=== PATIENT | female | born 1995 ===

== ENCOUNTER 2017-08-23 18:09 | Emergency (ER) | payer OTHER ==
[2017-08-23 18:22] VITALS: BP 119/75
[2017-08-23] MEDS ORDERED: Sulfamethox/Trimethoprim DS 800/160* TAB PO ONE (19:05)
--- NOTE | 2017-08-23 19:30 | UC ---
Complaint Female HPI - HPI Summary HPI Summary: THREE DAYS OF URINARY FREQUENCY, URGENCY, PAIN WITH URINATION. TODAY HAD SHARP ABDOMINAL PAIN, WHICH RESOLVED AFTER 3 MINUTES. CURRENTLY NO ABDOMINAL PAIN. TOOK 4 TABLETS OF AZO PRIOR TO ARRIVAL. - History Of Current Complaint Chief Complaint: UCAbdominalPain Stated Complaint: STOMACH PAIN Time Seen by Provider: 08/23/17 18:48 Hx Obtained From: Patient, Family/Tablet Coater Hx Last Menstrual Period: 07/2017 Onset/Duration: Gradual Onset, Lasting Days, Worse Since - TODAY Timing: Intermittent, Lasting Minutes Severity Initially: Mild Severity Currently: None Character: Cramping Aggravating Factor(s): Urination Associated Signs And Symptoms: Negative: Fever, Back Pain, Vaginal Bleeding/ Discharge, Vaginal Discharge, Nausea - Risk Factors Ectopic Risk Factor: Negative Ovarian Torsion Risk Factor: Negative - Allergies/Home Medications Allergies/Adverse Reactions: Allergies Allergy/AdvReac Type Severity Reaction Status Date / Time No Known Allergies Allergy Verified 08/23/17 18:22 PMH/Surg Hx/FS Hx/Imm Hx Previously Healthy: Yes - Surgical History Surgical History: None - Family History Known Family History: Positive: Hypertension - Social History Lives: With Family Alcohol Use: Weekly Substance Use Type: None Smoking Status (MU): Current Some Day Smoker Type: Cigarettes Amount Used/How Often: 3 CIG per wk - Immunization History Most Recent Influenza Vaccination: unknown Most Recent Tetanus Shot: <2 YEARS Vaccination Up to Date: Yes Review of Systems Constitutional: Negative Skin: Negative Eyes: Negative ENT: Negative Respiratory: Negative Cardiovascular: Negative Gastrointestinal: Abdominal Pain - RESOLVED Genitourinary: Dysuria, Frequency, Urgency Motor: Negative Neurovascular: Negative Musculoskeletal: Negative Neurological: Negative Psychological: Negative Is Patient Immunocompromised?: No All Other Systems Reviewed And Are Negative: Yes Physical Exam Triage Information Reviewed: Yes Appearance: Well-Appearing, No Pain Distress, Well-Nourished Vital Signs: Initial Vital Signs Temp 98.1 F 08/23/17 18:17 Pulse 52 08/23/17 18:17 Resp 14 08/23/17 18:17 BP 119/75 08/23/17 18:17 Pulse Ox 98 08/23/17 18:17 Vital Signs Reviewed: Yes Eye Exam: Normal ENT Exam: Normal ENT: Positive: Normal ENT inspection, Hearing grossly normal, Pharynx normal Dental Exam: Normal Neck exam: Normal Neck: Positive: Supple, Nontender, No Lymphadenopathy Respiratory Exam: Normal Respiratory: Positive: Chest non-tender, Lungs clear, Normal breath sounds, No respiratory distress, No accessory muscle use Cardiovascular Exam: Normal Cardiovascular: Positive: RRR, No Murmur, Pulses Normal, Brisk Capillary Refill Abdominal Exam: Normal Abdomen Description: Positive: Nontender - ABDOMEN NONTENDER ON CLINICAL EXAM, No Organomegaly, Soft. Negative: CVA Tenderness (R), CVA Tenderness (L) Musculoskeletal Exam: Normal Musculoskeletal: Positive: Strength Intact, ROM Intact Neurological Exam: Normal Psychological Exam: Normal Skin Exam: Normal Complaint Female Dx - Differential Dx/Diagnosis Differential Diagnosis/HQI/PQRI: Appendicitis, , Sexually Transmitted Disease, Urinary Tract Infection Provider Diagnoses: DYSURIA Discharge - Discharge Plan Condition: Stable Disposition: HOME Prescriptions: Sulfamethox/Trimethoprim DS* [Bactrim DS 800/160 TAB*] 1 tab PO BID #10 tab Patient Education Materials: Dysuria (ED) Referrals: [facility] [facility] [Outside] Additional Instructions: YOU HAVE BEEN TREATED FOR A UTI, SINCE YOU HAVE HAD UTI SYMPTOMS FOR SEVERAL DAYS. YOU ARE CURRENTLY NONTENDER IN YOUR ABDOMEN. HOWEVER, PLEASE SEEK IMMEDIATE EVALUATION AT EMERGENCY DEPARTMENT IF SYMPTOMS RETURN, WORSEN, OR CHANGE.
--- NOTE | 2017-08-26 15:00 | UC ---
Progress - Progress Note Progress Note: + E. Coli Pt on Bactrim await sensitivity [facility] 08/26/2017 1500
== END 2017-08-23 19:35 | disposition home or self-care (01) ==
LOC: UCEAST 18:09
DX: R30.0 Dysuria (principal); R35.0 Frequency of micturition; R39.15 Urgency of urination; Z72.0 Tobacco use
CPT/HCPCS: 81025; 87077; 87086; 87186; 99212; A9270-GY; G0463